=== PATIENT | male | born 1940 | race Caucasian/White ===

== ENCOUNTER → 2017-09-07 10:24 | Outpatient (CLI) | payer MEDICARE, SELFPAY ==
[2017-09-07 11:58] LABS: Add Manual Diff / Slide Review NO; Basophils Percent Auto 0.9 % (0-2); Eosinophils Percent Auto 2.5 % (2-4); Hematocrit 40.1 % (41-53); Hemoglobin 14.2 g/dL (13.5-17.5); Lymphocytes Percent Auto 22.7 % (25-40); Mean Corpuscular HGB Conc 35.4 % (30-36); Mean Corpuscular Hemoglobin 30.2 PG (26-34); Mean Corpuscular Volume 85.4 fL (80-100); Monocytes Percent Auto 10.7 % (3-14); Neutrophils Absolute Auto 4000 /uL (3000-5900); Neutrophils Percent Auto 63.2 % (50-75); Platelet Count 309 X10^3/uL (150-400); Red Blood Cell Count 4.69 X10^6/uL (4.5-5.9); Red Cell Distribution Width 15.1 % (11.6-14.8); White Blood Cell Count 6.3 X10^3/uL (4.5-11.0)
[2017-09-07 12:07] LABS: Alanine Aminotransferase 28 IU/L (21-72); Albumin 4.3 g/dL (3.5-5.0); Albumin Globulin Ratio 1.5 (1.0-2.8); Alkaline Phosphatase 46 U/L (38-126); Aspartate Aminotransferase 28 IU/L (17-59); Bilirubin Total 0.9 mg/dL (0.2-1.3); Blood Urea Nitrogen 15 mg/dL (9-20); Carbon Dioxide 30 mmol/L (22-32); Chloride 93 mmol/L (98-107); Estimated Glomerular Filt Rate > 60.0 mL/min (>60); Globulin 2.8 g/dL (1.7-4.1); Glucose 95 mg/dL (80-110); HEMOLYSIS < 15 (0-50); Potassium 4.2 mmol/L (3.4-5.1); Sodium 132 mmol/L (137-145); Total Protein 7.1 g/dL (6.3-8.2)
== END ==
PROVIDERS: Family Provider Internal Medicine; PCP Internal Medicine; Visit Provider Internal Medicine
DX: I10 Essential (primary) hypertension (principal)
CPT/HCPCS: 36415; 80053; 85025

== ENCOUNTER 2017-10-06 12:16 | Emergency (ER) | payer MEDICARE, SELFPAY ==
[2017-10-06] VITALS (8 sets, daily range): BP systolic 134–178; BP diastolic 83–96; PULSE 61–74; RESP 14–23; TEMP 36.9; O2SAT 99–100
--- NOTE | 2017-10-06 12:57 | ED.DIZZY ---
HPI - Dizziness <Suzi Galeano PA-C - Last Filed: 10/06/17 21:13> General Chief Complaint: Dizziness Stated Complaint: DIZZINESS Time Seen by Provider: 10/06/17 12:34 Source: patient and family Mode of arrival: ambulatory Limitations: no limitations History of Present Illness HPI Narrative: This 76-year-old male was [place], initially in the shade, then in the sun, when he suddenly felt ?dizzy? like he might pass out. He states that he went into the local pub and sat down and had some cold water. He never passed out, and states that he felt better after that. He noticed that his right hand and forearm felt puffy and like they were asleep for a number of minutes at least, noted he had been holding the water in that hand when he 1st noticed it. This did not extend up into the upper arm. He denies any chest pain, dyspnea, or palpitations associated with the dizziness. He has not had any nausea or vomiting. He has not noted any new swelling in the extremities or new pain. He denies any headache or vision change, but did start treatment for a sinus infection last Wednesday with Augmentin and also a Medrol Dosepak for his cough. He states these have improved. He ate a light breakfast and a glass of water this morning. He denies any other symptoms on systems review, states he is feeling somewhat better now. His notes that he did syncopized once due to low sodium. He notes that his sodium is always low but was especially so at that point. He has not had any other recent medication changes. Related Data Home Medications Medication Instructions Recorded Confirmed CA PANTOTHENATE/FOLIC ACID/VIT 1 tab PO QDAY #0 tab 12/09/12 10/01/17 (MULTIVITAMIN) VITAMIN D (Vitamin D3) 1,000 unit PO QDAY #0 tab 12/09/12 10/01/17 ascorbic acid (vitamin C) 500 mg PO QDAY #0 tab 12/09/12 10/01/17 beta carotene 15 mg tablet mg PO tab 09/21/17 10/01/17 cyclobenzaprine 10 mg tablet 10 mg PO ONCE PRN tab 09/21/17 10/01/17 ferrous sulfate 325 mg (65 mg 325 mg PO DAILY tab 09/21/17 10/01/17 iron) tablet alxvuxuazgwqy-seekbzrgbybbx-llzocremamxww 1 cap PO Q4H PRN 09/21/17 10/01/17 65 mg-100 mg-325 mg capsule Previous Rx's Medication Instructions Recorded metoprolol succinate [Toprol XL] 25 mg PO QDAY #90 tab 09/22/16 desmopressin 10 mcg INTRANASAL QDAYP PRN #1 ea 03/23/17 hydrocodone-acetaminophen 1 - 2 tab PO Q4H PRN #90 03/23/17 trazodone 50 mg PO SEE INSTRUCTIONS #180 tab 04/22/17 amoxicillin 500 mg-potassium 1 tab PO BID #14 tab 10/01/17 clavulanate 125 mg tablet methylprednisolone 4 mg tablets in See Label Instructions PO PER PKG 10/01/17 a dose pack DIR #21 each Allergies Allergy/AdvReac Type Severity Reaction Status Date / Time aspirin [ASPIRIN] Allergy Mild HEMOPHILIA Verified 10/06/17 13:25 codeine [CODEINE] Allergy Mild SWELLING Verified 10/06/17 13:25 IN ANKLES ibuprofen [IBUPROFEN] Allergy Mild HEMOPHILIA Verified 10/06/17 13:25 Review of Systems <Suzi Galeano PA-C - Last Filed: 10/06/17 21:13> Review of Systems All systems reviewed & are unremarkable except as noted in HPI and below Exam <Suzi Galeano PA-C - Last Filed: 10/06/17 21:13> Initial Vital Signs Initial Vital Signs: Vital Signs Temperature 98.4 F 10/06/17 12:20 Pulse Rate 72 10/06/17 12:20 Respiratory Rate 18 10/06/17 12:20 Blood Pressure 134/96 H 10/06/17 12:20 Pulse Oximetry 100 10/06/17 12:20 GENERAL APPEARANCE: Patient sitting comfortably, in no distress. HEENT: PERRL, EOMI, TMs occluded by cerumen bilaterally, normal oropharynx, no sinus TTP NECK: Supple, no masses LUNGS: Clear to auscultation bilaterally. HEART: Rate and rhythm regular without murmur, normal S1 and S2, no S3 or S4. ABDOMEN: Soft, NT, ND, + BS x 4 quadrants NEUROLOGIC: Alert and oriented, normal speech, and coordination. Cranial nerves III-XII grossly intact. Mild symptoms are elicited with Hallpike maneuver MUSCULOSKELETAL: Full Csp AROM <Saleem Cagle MD - Last Filed: 10/07/17 18:15> Initial Vital Signs Initial Vital Signs: Vital Signs Temperature 98.4 F 10/06/17 12:20 Pulse Rate 72 10/06/17 12:20 Respiratory Rate 18 10/06/17 12:20 Blood Pressure 134/96 H 10/06/17 12:20 Pulse Oximetry 100 10/06/17 12:20 Course <Suzi Galeano PA-C - Last Filed: 10/06/17 21:13> Hospital Course: Following fluids patient reported feeling much improved. He was ambulating comfortably and reported his dizziness resolved. He had developed some mild headache in the frontal area. He reported that this was not unusual. He actually has chronic headache disorder and this was mild on the spectrum. We did do a CT scan which did not show any acute findings, and he reported headache had already improved by the time of discharge without treatment. Advised return if any worsening or new symptoms and he and his are agreeable, and we will schedule a follow-up with PCP. Findings reviewed with Dr. Cagle who is in agreement with plan Orders Ordered: Discontinued Medications Sodium Chloride (Normal Saline 0.9%) 1,000 mls @ 1,000 mls/hr IV BOLUS ONE Stop: 10/06/17 13:56 Last Infusion: 10/06/17 15:34 Dose: 0 mls/hr Admin: 10/06/17 13:20 Dose: 1,000 mls/hr Vital Signs - 8 hr 10/06/17 13:11 10/06/17 14:08 10/06/17 14:34 Pulse Rate 74 66 68 Respiratory Rate 22 23 20 Blood Pressure [Left Arm] 167/89 H 167/88 H 162/83 H Pulse Oximetry 100 99 100 10/06/17 14:40 10/06/17 15:14 10/06/17 15:54 Pulse Rate 67 71 68 Respiratory Rate 19 17 14 Blood Pressure [Left Arm] 162/83 H 172/90 H 178/84 H Pulse Oximetry 100 100 100 10/06/17 16:00 Pulse Rate 61 Respiratory Rate 18 Blood Pressure [Left Arm] 167/88 H Pulse Oximetry 100 <Saleem Cagle MD - Last Filed: 10/07/17 18:15> Orders Ordered: Discontinued Medications Sodium Chloride (Normal Saline 0.9%) 1,000 mls @ 1,000 mls/hr IV BOLUS ONE Stop: 10/06/17 13:56 Last Infusion: 10/06/17 15:34 Dose: 0 mls/hr Admin: 10/06/17 13:20 Dose: 1,000 mls/hr Vital Signs - 8 hr 10/06/17 13:11 10/06/17 14:08 10/06/17 14:34 Pulse Rate 74 66 68 Respiratory Rate 22 23 20 Blood Pressure [Left Arm] 167/89 H 167/88 H 162/83 H Pulse Oximetry 100 99 100 10/06/17 14:40 10/06/17 15:14 10/06/17 15:54 Pulse Rate 67 71 68 Respiratory Rate 19 17 14 Blood Pressure [Left Arm] 162/83 H 172/90 H 178/84 H Pulse Oximetry 100 100 100 10/06/17 16:00 Pulse Rate 61 Respiratory Rate 18 Blood Pressure [Left Arm] 167/88 H Pulse Oximetry 100 MDM - Dizziness <Suzi Galeano PA-C - Last Filed: 10/06/17 21:13> Lab Data Attestation: I reviewed the patient's lab results. Result diagrams: 10/06/17 12:35 10/06/17 12:35 Lab Results 10/06/17 10/06/17 10/06/17 Range/Units 12:35 12:35 12:35 WBC 12.1 H (4.5-11.0) X10^3/uL RBC 5.12 (4.5-5.9) X10^6/uL Hgb 15.2 (13.5-17.5) g/dL Hct 44.0 (41-53) % MCV 85.9 (80-100) fL MCH 29.7 (26-34) PG MCHC 34.6 (30-36) % RDW 15.7 H (11.6-14.8) % Plt Count 472 H (150-400) X10^3/uL Neut % (Auto) 81.0 H (50-75) % Lymph % (Auto) 9.1 L (25-40) % Rhea % (Auto) 8.9 (3-14) % Eos % (Auto) 0.3 L (2-4) % Baso % (Auto) 0.7 (0-2) % Neut # (Auto) 9800 H (7877-2415) /uL PT 12.3 (10.1-12.7) SECONDS INR 1.1 (0.9-1.3) APTT 46 H (26.4-36.2) SECONDS Sodium 129 L (137-145) mmol/L Potassium 4.5 (3.4-5.1) mmol/L Chloride 90 L (98-107) mmol/L Carbon Dioxide 28 (22-32) mmol/L BUN 20 (9-20) mg/dL Creatinine 1.00 (0.66-1.25) mg/dL Estimated GFR > 60.0 (>60) mL/min BUN/Creatinine Ratio 20.0 (6-22) Glucose 103 (80-110) mg/dL Calcium 9.3 (8.4-10.2) mg/dL Total Bilirubin 1.1 (0.2-1.3) mg/dL AST 32 (17-59) IU/L ALT 50 (21-72) IU/L Alkaline Phosphatase 42 (38-126) U/L Total Creatine Kinase 53 L (55-170) U/L Troponin I < 0.012 (0.01-0.034) ng/mL Total Protein 7.8 (6.3-8.2) g/dL Albumin 4.6 (3.5-5.0) g/dL Globulin 3.2 (1.7-4.1) g/dL Albumin/Globulin Ratio 1.4 (1.0-2.8) Urine Color Urine Appearance Urine pH (4.5-8.0) Ur Specific [place] (1.000-1.035) Urine Protein (Negative) Urine Glucose (UA) (Normal) g/dL Urine Ketones (NEGATIVE) Urine Occult Blood (Negative) Urine Nitrate (Negative) Urine Bilirubin (NEGATIVE) Urine Urobilinogen (0.2) E.U./dL Ur Leukocyte Esterase (NEGATIVE) 10/06/17 Range/Units 14:00 WBC (4.5-11.0) X10^3/uL RBC (4.5-5.9) X10^6/uL Hgb (13.5-17.5) g/dL Hct (41-53) % MCV (80-100) fL MCH (26-34) PG MCHC (30-36) % RDW (11.6-14.8) % Plt Count (150-400) X10^3/uL Neut % (Auto) (50-75) % Lymph % (Auto) (25-40) % Rhea % (Auto) (3-14) % Eos % (Auto) (2-4) % Baso % (Auto) (0-2) % Neut # (Auto) (7439-1549) /uL PT (10.1-12.7) SECONDS INR (0.9-1.3) APTT (26.4-36.2) SECONDS Sodium (137-145) mmol/L Potassium (3.4-5.1) mmol/L Chloride (98-107) mmol/L Carbon Dioxide (22-32) mmol/L BUN (9-20) mg/dL Creatinine (0.66-1.25) mg/dL Estimated GFR (>60) mL/min BUN/Creatinine Ratio (6-22) Glucose (80-110) mg/dL Calcium (8.4-10.2) mg/dL Total Bilirubin (0.2-1.3) mg/dL AST (17-59) IU/L ALT (21-72) IU/L Alkaline Phosphatase (38-126) U/L Total Creatine Kinase (55-170) U/L Troponin I (0.01-0.034) ng/mL Total Protein (6.3-8.2) g/dL Albumin (3.5-5.0) g/dL Globulin (1.7-4.1) g/dL Albumin/Globulin Ratio (1.0-2.8) Urine Color Yellow Urine Appearance Clear Urine pH 8.0 (4.5-8.0) Ur Specific [place] 1.015 (1.000-1.035) Urine Protein Trace H (Negative) Urine Glucose (UA) Negative (Normal) g/dL Urine Ketones Trace H (NEGATIVE) Urine Occult Blood Negative (Negative) Urine Nitrate Negative (Negative) Urine Bilirubin Negative (NEGATIVE) Urine Urobilinogen 0.2 (0.2) E.U./dL Ur Leukocyte Esterase Negative (NEGATIVE) Imaging Data Chest x-ray: Radiologist's impression: [address] [address] XRay Report Signed Patient: Doug Soni MR#: [id number] : 1940 Acct:[id number] Age/Sex: 76 / M Date of Service: 10/06/17 Loc: ED Accession Number: [id number] Procedure: XR chest 1V Ordering Provider: Suzi Galeano P.A-C PROCEDURE: XR CHEST 1V INDICATIONS: near syncope TECHNIQUE: One view of the chest was acquired. COMPARISON: [facility], CR, CHEST 2 VIEW, 06/11/2012, 11:25. FINDINGS: Surgical changes and devices: None. Lungs and pleura: Hyperinflation signs consistent COPD. No pleural effusions or pneumothorax. Lungs are clear. Mediastinum: Mediastinal contours appear normal. Heart size is normal. Bones and chest wall: No suspicious bony lesions. Overlying soft tissues appear unremarkable. IMPRESSION: COPD. No acute cardiopulmonary disease. Dictated by: Yoni Nova M.D. on 10/06/2017 at 13:54 Approved by: Yoni Nova M.D. on 10/06/2017 at 13:57 CT scan - head: Radiologist's impression: [place] [address] CT Scan Report Signed Patient: Doug Soni MR#: [id number] : 1940 Acct:[id number] Age/Sex: 76 / M Date of Service: 10/06/17 Loc: ED Accession Number: [id number] Procedure: CT head/brain wo con Ordering Provider: Suzi Galeano P.A-C PROCEDURE: CT HEAD/BRAIN WO CON INDICATIONS: dizzy, [place]ON TECHNIQUE: Noncontrast 4.5 mm thick angled axial sections acquired from the foramen magnum to the vertex, with coronal and sagittal reformats. For radiation dose reduction, the following was used: automated exposure control, adjustment of mA and/or kV according to patient size. COMPARISON: [facility], CT, HEAD WITHOUT CONTRAST, 01/28/2010, 13:10. FINDINGS: Image quality: Excellent. CSF spaces: Basal cisterns are patent. No extra-axial fluid collections. The ventricles are symmetric in size and shape. Brain: No intracranial bleeds or masses. There is cerebral volume loss for age, with resultant ventricular and sulcal prominence. There are periventricular and deep white matter chronic small vessel ischemic changes. There is intracranial internal carotid artery atherosclerosis. Skull and face: Calvarium and visualized facial bones appear intact, without suspicious lesions. Sinuses: Visualized sinuses and mastoids are clear. IMPRESSION: 1. No acute intracranial abnormalities. 2. Cerebral volume loss and chronic microvascular ischemic changes. Dictated by: Yoni Nova M.D. on 10/06/2017 at 15:38 Approved by: Yoni Nova M.D. on 10/06/2017 at 15:40 ECG Data Attestation: I personally reviewed and interpreted this ECG as follows: (Normal sinus rhythm with rate 67) Prior ECG tracings: not available for review <Saleem Cagle MD - Last Filed: 10/07/17 18:15> Lab Data Lab Results 10/06/17 10/06/17 10/06/17 Range/Units 12:35 12:35 12:35 WBC 12.1 H (4.5-11.0) X10^3/uL RBC 5.12 (4.5-5.9) X10^6/uL Hgb 15.2 (13.5-17.5) g/dL Hct 44.0 (41-53) % MCV 85.9 (80-100) fL MCH 29.7 (26-34) PG MCHC 34.6 (30-36) % RDW 15.7 H (11.6-14.8) % Plt Count 472 H (150-400) X10^3/uL Neut % (Auto) 81.0 H (50-75) % Lymph % (Auto) 9.1 L (25-40) % Rhea % (Auto) 8.9 (3-14) % Eos % (Auto) 0.3 L (2-4) % Baso % (Auto) 0.7 (0-2) % Neut # (Auto) 9800 H (7167-0441) /uL PT 12.3 (10.1-12.7) SECONDS INR 1.1 (0.9-1.3) APTT 46 H (26.4-36.2) SECONDS Sodium 129 L (137-145) mmol/L Potassium 4.5 (3.4-5.1) mmol/L Chloride 90 L (98-107) mmol/L Carbon Dioxide 28 (22-32) mmol/L BUN 20 (9-20) mg/dL Creatinine 1.00 (0.66-1.25) mg/dL Estimated GFR > 60.0 (>60) mL/min BUN/Creatinine Ratio 20.0 (6-22) Glucose 103 (80-110) mg/dL Calcium 9.3 (8.4-10.2) mg/dL Total Bilirubin 1.1 (0.2-1.3) mg/dL AST 32 (17-59) IU/L ALT 50 (21-72) IU/L Alkaline Phosphatase 42 (38-126) U/L Total Creatine Kinase 53 L (55-170) U/L Troponin I < 0.012 (0.01-0.034) ng/mL Total Protein 7.8 (6.3-8.2) g/dL Albumin 4.6 (3.5-5.0) g/dL Globulin 3.2 (1.7-4.1) g/dL Albumin/Globulin Ratio 1.4 (1.0-2.8) Urine Color Urine Appearance Urine pH (4.5-8.0) Ur Specific [place] (1.000-1.035) Urine Protein (Negative) Urine Glucose (UA) (Normal) g/dL Urine Ketones (NEGATIVE) Urine Occult Blood (Negative) Urine Nitrate (Negative) Urine Bilirubin (NEGATIVE) Urine Urobilinogen (0.2) E.U./dL Ur Leukocyte Esterase (NEGATIVE) 10/06/17 Range/Units 14:00 WBC (4.5-11.0) X10^3/uL RBC (4.5-5.9) X10^6/uL Hgb (13.5-17.5) g/dL Hct (41-53) % MCV (80-100) fL MCH (26-34) PG MCHC (30-36) % RDW (11.6-14.8) % Plt Count (150-400) X10^3/uL Neut % (Auto) (50-75) % Lymph % (Auto) (25-40) % Rhea % (Auto) (3-14) % Eos % (Auto) (2-4) % Baso % (Auto) (0-2) % Neut # (Auto) (8635-1817) /uL PT (10.1-12.7) SECONDS INR (0.9-1.3) APTT (26.4-36.2) SECONDS Sodium (137-145) mmol/L Potassium (3.4-5.1) mmol/L Chloride (98-107) mmol/L Carbon Dioxide (22-32) mmol/L BUN (9-20) mg/dL Creatinine (0.66-1.25) mg/dL Estimated GFR (>60) mL/min BUN/Creatinine Ratio (6-22) Glucose (80-110) mg/dL Calcium (8.4-10.2) mg/dL Total Bilirubin (0.2-1.3) mg/dL AST (17-59) IU/L ALT (21-72) IU/L Alkaline Phosphatase (38-126) U/L Total Creatine Kinase (55-170) U/L Troponin I (0.01-0.034) ng/mL Total Protein (6.3-8.2) g/dL Albumin (3.5-5.0) g/dL Globulin (1.7-4.1) g/dL Albumin/Globulin Ratio (1.0-2.8) Urine Color Yellow Urine Appearance Clear Urine pH 8.0 (4.5-8.0) Ur Specific [place] 1.015 (1.000-1.035) Urine Protein Trace H (Negative) Urine Glucose (UA) Negative (Normal) g/dL Urine Ketones Trace H (NEGATIVE) Urine Occult Blood Negative (Negative) Urine Nitrate Negative (Negative) Urine Bilirubin Negative (NEGATIVE) Urine Urobilinogen 0.2 (0.2) E.U./dL Ur Leukocyte Esterase Negative (NEGATIVE) Discharge Plan Departure Patient Disposition: Home, Self-Care Clinical Impression: Pre-syncope Discharge Date/Time: 10/06/17 16:14 Interventions: ED Discharge Assessment Last Done: 10/06/17 16:14 Instructions: DI for Syncope in Adults (Fainting) Activity Restrictions/Additional Instructions: Please return if you have any acutely worsening symptoms again or new symptoms such as chest discomfort or palpitations.. There was no specific cause found for your feeling faint today. Your sodium was a little bit lower than usual even for you, and you may have been a little bit dehydrated. Since you are feeling better, it is okay to monitor at home. Please have some salty food today. Take your usual medications. Please follow-up with your PCP next week for recheck Prescriptions: No Action ascorbic acid (vitamin C) 500 MG tablet 500 mg PO QDAY Qty: 0 RF: 0 CA PANTOTHENATE/FOLIC ACID/VIT (MULTIVITAMIN) 1 tab PO QDAY Qty: 0 RF: 0 VITAMIN D (Vitamin D3) 1,000 unit PO QDAY Qty: 0 RF: 0 metoprolol succinate [Toprol XL] 25 MG tablet extended release 24 hr 25 mg PO QDAY Qty: 90 RF: 3 hydrocodone-acetaminophen 5 MG/325 MG tablet 1 - 2 tab PO Q4H PRNQty: 90 RF: 0 desmopressin 10 MCG/0.1 ML aerosol,spray 10 mcg Intranasal QDAYP PRNQty: 1 RF: 11 trazodone 50 MG tablet 50 mg PO SEE INSTRUCTIONS Qty: 180 RF: 3 cyclobenzaprine 10 mg tablet 10 mg PO ONCE PRNRF: 0 beta carotene 15 mg tablet PO RF: 0 ferrous sulfate [Hemanth-Time] 325 mg (65 mg iron) tablet 325 mg PO DAILY RF: 0 mqmmssx-hthmnzyez-xdzxyclsswcq 65-100-325 mg capsule 1 cap PO Q4H PRNRF: 0 methylprednisolone [Medrol (Juanito)] 4 mg tablets,dose pack See Label Instructions PO PER PKG DIR Qty: 21 RF: 0 amoxicillin-pot clavulanate 500-125 mg tablet 1 tab PO BID Qty: 14 RF: 0 Referrals: Lavon Cardozo MD [Primary Care Provider] - <Saleem Cagle MD - Last Filed: 10/07/17 18:15> Cosign ED Attending Piedadature Attestation: I was fairly well in the emergency department to answer questions and assist if needed. I agree with the document content and management plan.
[2017-10-06 13:04] LABS: Add Manual Diff / Slide Review NO; Basophils Percent Auto 0.7 % (0-2); Eosinophils Percent Auto 0.3 % (2-4); Hemoglobin 15.2 g/dL (13.5-17.5); Lymphocytes Percent Auto 9.1 % (25-40); Mean Corpuscular HGB Conc 34.6 % (30-36); Mean Corpuscular Hemoglobin 29.7 PG (26-34); Mean Corpuscular Volume 85.9 fL (80-100); Monocytes Percent Auto 8.9 % (3-14); Neutrophils Absolute Auto 9800 /uL (3000-5900); Platelet Count 472 X10^3/uL (150-400); Red Blood Cell Count 5.12 X10^6/uL (4.5-5.9); Red Cell Distribution Width 15.7 % (11.6-14.8); White Blood Cell Count 12.1 X10^3/uL (4.5-11.0)
[2017-10-06 13:10] LABS: Alanine Aminotransferase 50 IU/L (21-72); Albumin 4.6 g/dL (3.5-5.0); Albumin Globulin Ratio 1.4 (1.0-2.8); Alkaline Phosphatase 42 U/L (38-126); Aspartate Aminotransferase 32 IU/L (17-59); Bilirubin Total 1.1 mg/dL (0.2-1.3); Blood Urea Nitrogen 20 mg/dL (9-20); Calcium 9.3 mg/dL (8.4-10.2); Carbon Dioxide 28 mmol/L (22-32); Chloride 90 mmol/L (98-107); Creatine Kinase 53 U/L (55-170); Estimated Glomerular Filt Rate > 60.0 mL/min (>60); Globulin 3.2 g/dL (1.7-4.1); Glucose 103 mg/dL (80-110); HEMOLYSIS 15 (0-50); Potassium 4.5 mmol/L (3.4-5.1); Sodium 129 mmol/L (137-145); Total Protein 7.8 g/dL (6.3-8.2)
[2017-10-06] MEDS: SODIUM CHLORIDE 0.9% 1,000 ML 1000 ML IV (13:20)
[2017-10-06 13:22] LABS: Troponin I < 0.012 ng/mL (0.01-0.034)
--- NOTE | 2017-10-06 13:25 | DI.RAD.S_ITS ---
PROCEDURE: XR CHEST 1V INDICATIONS: near syncope TECHNIQUE: One view of the chest was acquired. COMPARISON: [facility], , CHEST 2 VIEW, 06/11/2012, 11:25. FINDINGS: Surgical changes and devices: None. Lungs and pleura: Hyperinflation signs consistent COPD. No pleural effusions or pneumothorax. Lungs are clear. Mediastinum: Mediastinal contours appear normal. Heart size is normal. Bones and chest wall: No suspicious bony lesions. Overlying soft tissues appear unremarkable. IMPRESSION: COPD. No acute cardiopulmonary disease. Dictated by: Yoni Nova M.D. on 10/06/2017 at 13:54 Approved by: Yoni Nova M.D. on 10/06/2017 at 13:57
--- NOTE | 2017-10-06 13:30 | ED_ITS ---
HPI - Dizziness <Suzi Galeano PA-C - Last Filed: 10/06/17 21:13> General Chief Complaint: Dizziness Stated Complaint: DIZZINESS Time Seen by Provider: 10/06/17 12:34 Source: patient and family Mode of arrival: ambulatory Limitations: no limitations History of Present Illness HPI Narrative: This 76-year-old male was [place], initially in the shade, then in the sun, when he suddenly felt ?dizzy? like he might pass out. He states that he went into the local pub and sat down and had some cold water. He never passed out, and states that he felt better after that. He noticed that his right hand and forearm felt puffy and like they were asleep for a number of minutes at least, noted he had been holding the water in that hand when he 1st noticed it. This did not extend up into the upper arm. He denies any chest pain, dyspnea, or palpitations associated with the dizziness. He has not had any nausea or vomiting. He has not noted any new swelling in the extremities or new pain. He denies any headache or vision change, but did start treatment for a sinus infection last Wednesday with Augmentin and also a Medrol Dosepak for his cough. He states these have improved. He ate a light breakfast and a glass of water this morning. He denies any other symptoms on systems review, states he is feeling somewhat better now. His notes that he did syncopized once due to low sodium. He notes that his sodium is always low but was especially so at that point. He has not had any other recent medication changes. Related Data Home Medications Medication Instructions Recorded Confirmed CA PANTOTHENATE/FOLIC ACID/VIT 1 tab PO QDAY #0 tab 12/09/12 10/01/17 (MULTIVITAMIN) VITAMIN D (Vitamin D3) 1,000 unit PO QDAY #0 tab 12/09/12 10/01/17 ascorbic acid (vitamin C) 500 mg PO QDAY #0 tab 12/09/12 10/01/17 beta carotene 15 mg tablet mg PO tab 09/21/17 10/01/17 cyclobenzaprine 10 mg tablet 10 mg PO ONCE PRN tab 09/21/17 10/01/17 ferrous sulfate 325 mg (65 mg 325 mg PO DAILY tab 09/21/17 10/01/17 iron) tablet vwvdijpyygrpk-qfszlnfufalvn-ezhjkrmiolxrv 1 cap PO Q4H PRN 09/21/17 10/01/17 65 mg-100 mg-325 mg capsule Previous Rx's Medication Instructions Recorded metoprolol succinate [Toprol XL] 25 mg PO QDAY #90 tab 09/22/16 desmopressin 10 mcg INTRANASAL QDAYP PRN #1 ea 03/23/17 hydrocodone-acetaminophen 1 - 2 tab PO Q4H PRN #90 03/23/17 trazodone 50 mg PO SEE INSTRUCTIONS #180 tab 04/22/17 amoxicillin 500 mg-potassium 1 tab PO BID #14 tab 10/01/17 clavulanate 125 mg tablet methylprednisolone 4 mg tablets in See Label Instructions PO PER PKG 10/01/17 a dose pack DIR #21 each Allergies Allergy/AdvReac Type Severity Reaction Status Date / Time aspirin [ASPIRIN] Allergy Mild HEMOPHILIA Verified 10/06/17 13:25 codeine [CODEINE] Allergy Mild SWELLING Verified 10/06/17 13:25 IN ANKLES ibuprofen [IBUPROFEN] Allergy Mild HEMOPHILIA Verified 10/06/17 13:25 Review of Systems <Suzi Galeano PA-C - Last Filed: 10/06/17 21:13> Review of Systems All systems reviewed & are unremarkable except as noted in HPI and below Exam <Suzi Galeano PA-C - Last Filed: 10/06/17 21:13> Initial Vital Signs Initial Vital Signs: Vital Signs Temperature 98.4 F 10/06/17 12:20 Pulse Rate 72 10/06/17 12:20 Respiratory Rate 18 10/06/17 12:20 Blood Pressure 134/96 H 10/06/17 12:20 Pulse Oximetry 100 10/06/17 12:20 GENERAL APPEARANCE: Patient sitting comfortably, in no distress. HEENT: PERRL, EOMI, TMs occluded by cerumen bilaterally, normal oropharynx, no sinus TTP NECK: Supple, no masses LUNGS: Clear to auscultation bilaterally. HEART: Rate and rhythm regular without murmur, normal S1 and S2, no S3 or S4. ABDOMEN: Soft, NT, ND, + BS x 4 quadrants NEUROLOGIC: Alert and oriented, normal speech, and coordination. Cranial nerves III-XII grossly intact. Mild symptoms are elicited with Hallpike maneuver MUSCULOSKELETAL: Full Csp AROM <Saleem Cagle MD - Last Filed: 10/07/17 18:15> Initial Vital Signs Initial Vital Signs: Vital Signs Temperature 98.4 F 10/06/17 12:20 Pulse Rate 72 10/06/17 12:20 Respiratory Rate 18 10/06/17 12:20 Blood Pressure 134/96 H 10/06/17 12:20 Pulse Oximetry 100 10/06/17 12:20 Course <Suzi Galeano PA-C - Last Filed: 10/06/17 21:13> Hospital Course: Following fluids patient reported feeling much improved. He was ambulating comfortably and reported his dizziness resolved. He had developed some mild headache in the frontal area. He reported that this was not unusual. He actually has chronic headache disorder and this was mild on the spectrum. We did do a CT scan which did not show any acute findings, and he reported headache had already improved by the time of discharge without treatment. Advised return if any worsening or new symptoms and he and his are agreeable, and we will schedule a follow-up with PCP. Findings reviewed with Dr. Cagle who is in agreement with plan Orders Ordered: Discontinued Medications Sodium Chloride (Normal Saline 0.9%) 1,000 mls @ 1,000 mls/hr IV BOLUS ONE Stop: 10/06/17 13:56 Last Infusion: 10/06/17 15:34 Dose: 0 mls/hr Admin: 10/06/17 13:20 Dose: 1,000 mls/hr Vital Signs - 8 hr 10/06/17 13:11 10/06/17 14:08 10/06/17 14:34 Pulse Rate 74 66 68 Respiratory Rate 22 23 20 Blood Pressure [Left Arm] 167/89 H 167/88 H 162/83 H Pulse Oximetry 100 99 100 10/06/17 14:40 10/06/17 15:14 10/06/17 15:54 Pulse Rate 67 71 68 Respiratory Rate 19 17 14 Blood Pressure [Left Arm] 162/83 H 172/90 H 178/84 H Pulse Oximetry 100 100 100 10/06/17 16:00 Pulse Rate 61 Respiratory Rate 18 Blood Pressure [Left Arm] 167/88 H Pulse Oximetry 100 <Saleem Cagle MD - Last Filed: 10/07/17 18:15> Orders Ordered: Discontinued Medications Sodium Chloride (Normal Saline 0.9%) 1,000 mls @ 1,000 mls/hr IV BOLUS ONE Stop: 10/06/17 13:56 Last Infusion: 10/06/17 15:34 Dose: 0 mls/hr Admin: 10/06/17 13:20 Dose: 1,000 mls/hr Vital Signs - 8 hr 10/06/17 13:11 10/06/17 14:08 10/06/17 14:34 Pulse Rate 74 66 68 Respiratory Rate 22 23 20 Blood Pressure [Left Arm] 167/89 H 167/88 H 162/83 H Pulse Oximetry 100 99 100 10/06/17 14:40 10/06/17 15:14 10/06/17 15:54 Pulse Rate 67 71 68 Respiratory Rate 19 17 14 Blood Pressure [Left Arm] 162/83 H 172/90 H 178/84 H Pulse Oximetry 100 100 100 10/06/17 16:00 Pulse Rate 61 Respiratory Rate 18 Blood Pressure [Left Arm] 167/88 H Pulse Oximetry 100 MDM - Dizziness <Suzi Galeano PA-C - Last Filed: 10/06/17 21:13> Lab Data Attestation: I reviewed the patient's lab results. Result diagrams: 10/06/17 12:35 10/06/17 12:35 Lab Results 10/06/17 10/06/17 10/06/17 Range/Units 12:35 12:35 12:35 WBC 12.1 H (4.5-11.0) X10^3/uL RBC 5.12 (4.5-5.9) X10^6/uL Hgb 15.2 (13.5-17.5) g/dL Hct 44.0 (41-53) % MCV 85.9 (80-100) fL MCH 29.7 (26-34) PG MCHC 34.6 (30-36) % RDW 15.7 H (11.6-14.8) % Plt Count 472 H (150-400) X10^3/uL Neut % (Auto) 81.0 H (50-75) % Lymph % (Auto) 9.1 L (25-40) % [place] % (Auto) 8.9 (3-14) % Eos % (Auto) 0.3 L (2-4) % Baso % (Auto) 0.7 (0-2) % Neut # (Auto) 9800 H (5268-6232) /uL PT 12.3 (10.1-12.7) SECONDS INR 1.1 (0.9-1.3) APTT 46 H (26.4-36.2) SECONDS Sodium 129 L (137-145) mmol/L Potassium 4.5 (3.4-5.1) mmol/L Chloride 90 L (98-107) mmol/L Carbon Dioxide 28 (22-32) mmol/L BUN 20 (9-20) mg/dL Creatinine 1.00 (0.66-1.25) mg/dL Estimated GFR > 60.0 (>60) mL/min BUN/Creatinine Ratio 20.0 (6-22) Glucose 103 (80-110) mg/dL Calcium 9.3 (8.4-10.2) mg/dL Total Bilirubin 1.1 (0.2-1.3) mg/dL AST 32 (17-59) IU/L ALT 50 (21-72) IU/L Alkaline Phosphatase 42 (38-126) U/L Total Creatine Kinase 53 L (55-170) U/L Troponin I < 0.012 (0.01-0.034) ng/mL Total Protein 7.8 (6.3-8.2) g/dL Albumin 4.6 (3.5-5.0) g/dL Globulin 3.2 (1.7-4.1) g/dL Albumin/Globulin Ratio 1.4 (1.0-2.8) Urine Color Urine Appearance Urine pH (4.5-8.0) Ur Specific [place] (1.000-1.035) Urine Protein (Negative) Urine Glucose (UA) (Normal) g/dL Urine Ketones (NEGATIVE) Urine Occult Blood (Negative) Urine Nitrate (Negative) Urine Bilirubin (NEGATIVE) Urine Urobilinogen (0.2) E.U./dL Ur Leukocyte Esterase (NEGATIVE) 10/06/17 Range/Units 14:00 WBC (4.5-11.0) X10^3/uL RBC (4.5-5.9) X10^6/uL Hgb (13.5-17.5) g/dL Hct (41-53) % MCV (80-100) fL MCH (26-34) PG MCHC (30-36) % RDW (11.6-14.8) % Plt Count (150-400) X10^3/uL Neut % (Auto) (50-75) % Lymph % (Auto) (25-40) % [place] % (Auto) (3-14) % Eos % (Auto) (2-4) % Baso % (Auto) (0-2) % Neut # (Auto) (5202-2458) /uL PT (10.1-12.7) SECONDS INR (0.9-1.3) APTT (26.4-36.2) SECONDS Sodium (137-145) mmol/L Potassium (3.4-5.1) mmol/L Chloride (98-107) mmol/L Carbon Dioxide (22-32) mmol/L BUN (9-20) mg/dL Creatinine (0.66-1.25) mg/dL Estimated GFR (>60) mL/min BUN/Creatinine Ratio (6-22) Glucose (80-110) mg/dL Calcium (8.4-10.2) mg/dL Total Bilirubin (0.2-1.3) mg/dL AST (17-59) IU/L ALT (21-72) IU/L Alkaline Phosphatase (38-126) U/L Total Creatine Kinase (55-170) U/L Troponin I (0.01-0.034) ng/mL Total Protein (6.3-8.2) g/dL Albumin (3.5-5.0) g/dL Globulin (1.7-4.1) g/dL Albumin/Globulin Ratio (1.0-2.8) Urine Color Yellow Urine Appearance Clear Urine pH 8.0 (4.5-8.0) Ur Specific [place] 1.015 (1.000-1.035) Urine Protein Trace H (Negative) Urine Glucose (UA) Negative (Normal) g/dL Urine Ketones Trace H (NEGATIVE) Urine Occult Blood Negative (Negative) Urine Nitrate Negative (Negative) Urine Bilirubin Negative (NEGATIVE) Urine Urobilinogen 0.2 (0.2) E.U./dL Ur Leukocyte Esterase Negative (NEGATIVE) Imaging Data Chest x-ray: Radiologist's impression: [address] [address] XRay Report Signed Patient: Doug Soni MR#: [id number] : 1940 Acct:[id number] Age/Sex: 76 / M Date of Service: 10/06/17 Loc: ED Accession Number: [id number] Procedure: XR chest 1V Ordering Provider: Suzi Galeano P.A-C PROCEDURE: XR CHEST 1V INDICATIONS: near syncope TECHNIQUE: One view of the chest was acquired. COMPARISON: [facility], CR, CHEST 2 VIEW, 06/11/2012, 11:25. FINDINGS: Surgical changes and devices: None. Lungs and pleura: Hyperinflation signs consistent COPD. No pleural effusions or pneumothorax. Lungs are clear. Mediastinum: Mediastinal contours appear normal. Heart size is normal. Bones and chest wall: No suspicious bony lesions. Overlying soft tissues appear unremarkable. IMPRESSION: COPD. No acute cardiopulmonary disease. Dictated by: Yoni Nova M.D. on 10/06/2017 at 13:54 Approved by: Yoni Nova M.D. on 10/06/2017 at 13:57 CT scan - head: Radiologist's impression: [place] [address] CT Scan Report Signed Patient: Doug Soni MR#: [id number] : 1940 Acct:[id number] Age/Sex: 76 / M Date of Service: 10/06/17 Loc: ED Accession Number: [id number] Procedure: CT head/brain wo con Ordering Provider: Suzi Galeano P.A-C PROCEDURE: CT HEAD/BRAIN WO CON INDICATIONS: dizzy, GASTON TECHNIQUE: Noncontrast 4.5 mm thick angled axial sections acquired from the foramen magnum to the vertex, with coronal and sagittal reformats. For radiation dose reduction, the following was used: automated exposure control, adjustment of mA and/or kV according to patient size. COMPARISON: [facility], CT, HEAD WITHOUT CONTRAST, 01/28/2010, 13:10. FINDINGS: Image quality: Excellent. CSF spaces: Basal cisterns are patent. No extra-axial fluid collections. The ventricles are symmetric in size and shape. Brain: No intracranial bleeds or masses. There is cerebral volume loss for age , with resultant ventricular and sulcal prominence. There are periventricular and deep white matter chronic small vessel ischemic changes. There is intracranial internal carotid artery atherosclerosis. Skull and face: Calvarium and visualized facial bones appear intact, without suspicious lesions. Sinuses: Visualized sinuses and mastoids are clear. IMPRESSION: 1. No acute intracranial abnormalities. 2. Cerebral volume loss and chronic microvascular ischemic changes. Dictated by: Yoni Nova M.D. on 10/06/2017 at 15:38 Approved by: Yoni Nova M.D. on 10/06/2017 at 15:40 ECG Data Attestation: I personally reviewed and interpreted this ECG as follows: (Normal sinus rhythm with rate 67) Prior ECG tracings: not available for review <Saleem Cagle MD - Last Filed: 10/07/17 18:15> Lab Data Lab Results 10/06/17 10/06/17 10/06/17 Range/Units 12:35 12:35 12:35 WBC 12.1 H (4.5-11.0) X10^3/uL RBC 5.12 (4.5-5.9) X10^6/uL Hgb 15.2 (13.5-17.5) g/dL Hct 44.0 (41-53) % MCV 85.9 (80-100) fL MCH 29.7 (26-34) PG MCHC 34.6 (30-36) % RDW 15.7 H (11.6-14.8) % Plt Count 472 H (150-400) X10^3/uL Neut % (Auto) 81.0 H (50-75) % Lymph % (Auto) 9.1 L (25-40) % [place] % (Auto) 8.9 (3-14) % Eos % (Auto) 0.3 L (2-4) % Baso % (Auto) 0.7 (0-2) % Neut # (Auto) 9800 H (9414-3043) /uL PT 12.3 (10.1-12.7) SECONDS INR 1.1 (0.9-1.3) APTT 46 H (26.4-36.2) SECONDS Sodium 129 L (137-145) mmol/L Potassium 4.5 (3.4-5.1) mmol/L Chloride 90 L (98-107) mmol/L Carbon Dioxide 28 (22-32) mmol/L BUN 20 (9-20) mg/dL Creatinine 1.00 (0.66-1.25) mg/dL Estimated GFR > 60.0 (>60) mL/min BUN/Creatinine Ratio 20.0 (6-22) Glucose 103 (80-110) mg/dL Calcium 9.3 (8.4-10.2) mg/dL Total Bilirubin 1.1 (0.2-1.3) mg/dL AST 32 (17-59) IU/L ALT 50 (21-72) IU/L Alkaline Phosphatase 42 (38-126) U/L Total Creatine Kinase 53 L (55-170) U/L Troponin I < 0.012 (0.01-0.034) ng/mL Total Protein 7.8 (6.3-8.2) g/dL Albumin 4.6 (3.5-5.0) g/dL Globulin 3.2 (1.7-4.1) g/dL Albumin/Globulin Ratio 1.4 (1.0-2.8) Urine Color Urine Appearance Urine pH (4.5-8.0) Ur Specific [place] (1.000-1.035) Urine Protein (Negative) Urine Glucose (UA) (Normal) g/dL Urine Ketones (NEGATIVE) Urine Occult Blood (Negative) Urine Nitrate (Negative) Urine Bilirubin (NEGATIVE) Urine Urobilinogen (0.2) E.U./dL Ur Leukocyte Esterase (NEGATIVE) 10/06/17 Range/Units 14:00 WBC (4.5-11.0) X10^3/uL RBC (4.5-5.9) X10^6/uL Hgb (13.5-17.5) g/dL Hct (41-53) % MCV (80-100) fL MCH (26-34) PG MCHC (30-36) % RDW (11.6-14.8) % Plt Count (150-400) X10^3/uL Neut % (Auto) (50-75) % Lymph % (Auto) (25-40) % [place] % (Auto) (3-14) % Eos % (Auto) (2-4) % Baso % (Auto) (0-2) % Neut # (Auto) (1279-4987) /uL PT (10.1-12.7) SECONDS INR (0.9-1.3) APTT (26.4-36.2) SECONDS Sodium (137-145) mmol/L Potassium (3.4-5.1) mmol/L Chloride (98-107) mmol/L Carbon Dioxide (22-32) mmol/L BUN (9-20) mg/dL Creatinine (0.66-1.25) mg/dL Estimated GFR (>60) mL/min BUN/Creatinine Ratio (6-22) Glucose (80-110) mg/dL Calcium (8.4-10.2) mg/dL Total Bilirubin (0.2-1.3) mg/dL AST (17-59) IU/L ALT (21-72) IU/L Alkaline Phosphatase (38-126) U/L Total Creatine Kinase (55-170) U/L Troponin I (0.01-0.034) ng/mL Total Protein (6.3-8.2) g/dL Albumin (3.5-5.0) g/dL Globulin (1.7-4.1) g/dL Albumin/Globulin Ratio (1.0-2.8) Urine Color Yellow Urine Appearance Clear Urine pH 8.0 (4.5-8.0) Ur Specific [place] 1.015 (1.000-1.035) Urine Protein Trace H (Negative) Urine Glucose (UA) Negative (Normal) g/dL Urine Ketones Trace H (NEGATIVE) Urine Occult Blood Negative (Negative) Urine Nitrate Negative (Negative) Urine Bilirubin Negative (NEGATIVE) Urine Urobilinogen 0.2 (0.2) E.U./dL Ur Leukocyte Esterase Negative (NEGATIVE) Discharge Plan Departure Patient Disposition: Home, Self-Care Clinical Impression: Pre-syncope Discharge Date/Time: 10/06/17 16:14 Interventions: ED Discharge Assessment Last Done: 10/06/17 16:14 Instructions: DI for Syncope in Adults (Fainting) Activity Restrictions/Additional Instructions: Please return if you have any acutely worsening symptoms again or new symptoms such as chest discomfort or palpitations.. There was no specific cause found for your feeling faint today. Your sodium was a little bit lower than usual even for you, and you may have been a little bit dehydrated. Since you are feeling better, it is okay to monitor at home. Please have some salty food today. Take your usual medications. Please follow-up with your PCP next week for recheck Prescriptions: No Action ascorbic acid (vitamin C) 500 MG tablet 500 mg PO QDAY Qty: 0 RF: 0 CA PANTOTHENATE/FOLIC ACID/VIT (MULTIVITAMIN) 1 tab PO QDAY Qty: 0 RF: 0 VITAMIN D (Vitamin D3) 1,000 unit PO QDAY Qty: 0 RF: 0 metoprolol succinate [Toprol XL] 25 MG tablet extended release 24 hr 25 mg PO QDAY Qty: 90 RF: 3 hydrocodone-acetaminophen 5 MG/325 MG tablet 1 - 2 tab PO Q4H PRNQty: 90 RF: 0 desmopressin 10 MCG/0.1 ML aerosol,spray 10 mcg Intranasal QDAYP PRNQty: 1 RF: 11 trazodone 50 MG tablet 50 mg PO SEE INSTRUCTIONS Qty: 180 RF: 3 cyclobenzaprine 10 mg tablet 10 mg PO ONCE PRNRF: 0 beta carotene 15 mg tablet PO RF: 0 ferrous sulfate [Hemanth-Time] 325 mg (65 mg iron) tablet 325 mg PO DAILY RF: 0 tvvisln-clssxjolh-sloikoflgync 65-100-325 mg capsule 1 cap PO Q4H PRNRF: 0 methylprednisolone [Medrol (Juanito)] 4 mg tablets,dose pack See Label Instructions PO PER PKG DIR Qty: 21 RF: 0 amoxicillin-pot clavulanate 500-125 mg tablet 1 tab PO BID Qty: 14 RF: 0 Referrals: Lavon Cardozo MD [Primary Care Provider] - <Saleem Cagle MD - Last Filed: 10/07/17 18:15> Cosign ED Attending Piedadature Attestation: I was fairly well in the emergency department to answer questions and assist if needed. I agree with the document content and management plan.
[2017-10-06 13:44] LABS: INR 1.1 (0.9-1.3); Prothrombin Time 12.3 SECONDS (10.1-12.7)
[2017-10-06 13:46] LABS: PTT Partial Thromboplastin Tim 46 SECONDS (26.4-36.2)
[2017-10-06 14:26] LABS: Appearance Urine UA CLEAR; Bilirubin Urine UA NEGATIVE (NEGATIVE); Color Urine UA YELLOW; Glucose Urine UA NEGATIVE (Normal); Ketones Urine UA TRACE (NEGATIVE); Leukocyte Esterase Urine UA NEGATIVE (NEGATIVE); Nitrite Urine UA Negative (Negative); Occult Blood Urine UA NEGATIVE (Negative); Protein Urine UA TRACE (Negative); Specific Gravity Urine UA 1.015 (1.000-1.035); Urobilinogen Urine UA 0.2 E.U./dL (0.2)
--- NOTE | 2017-10-06 15:17 | DI.CT.S_ITS ---
PROCEDURE: CT HEAD/BRAIN WO CON INDICATIONS: dizzy, GASTON TECHNIQUE: Noncontrast 4.5 mm thick angled axial sections acquired from the foramen magnum to the vertex, with coronal and sagittal reformats. For radiation dose reduction, the following was used: automated exposure control, adjustment of mA and/or kV according to patient size. COMPARISON: [facility], CT, HEAD WITHOUT CONTRAST, 01/28/2010, 13:10. FINDINGS: Image quality: Excellent. CSF spaces: Basal cisterns are patent. No extra-axial fluid collections. The ventricles are symmetric in size and shape. Brain: No intracranial bleeds or masses. There is cerebral volume loss for age, with resultant ventricular and sulcal prominence. There are periventricular and deep white matter chronic small vessel ischemic changes. There is intracranial internal carotid artery atherosclerosis. Skull and face: Calvarium and visualized facial bones appear intact, without suspicious lesions. Sinuses: Visualized sinuses and mastoids are clear. IMPRESSION: 1. No acute intracranial abnormalities. 2. Cerebral volume loss and chronic microvascular ischemic changes. Dictated by: Yoni Nova M.D. on 10/06/2017 at 15:38 Approved by: Yoni Nova M.D. on 10/06/2017 at 15:40
== END 2017-10-06 16:14 | disposition home or self-care (01) ==
PROVIDERS: Emergency Provider Internal Medicine; Family Provider Internal Medicine; PCP Internal Medicine
DX: R55 Syncope and collapse (principal)
CPT/HCPCS: 36415; 36591; 70450; 71045; 80053; 81003; 82550; 82553; 84484; 85025; 85610; 85730; 93005; 93041; 96360; 96361; 99285

== ENCOUNTER → 2018-02-22 11:02 | Outpatient (CLI) | payer MEDICARE, SELFPAY ==
[2018-02-22 12:04] LABS: Add Manual Diff / Slide Review NO; Eosinophils Percent Auto 1.3 % (2-4); Hematocrit 39.9 % (41-53); Hemoglobin 13.7 g/dL (13.5-17.5); Lymphocytes Percent Auto 20.4 % (25-40); Mean Corpuscular HGB Conc 34.4 % (30-36); Mean Corpuscular Hemoglobin 29.9 PG (26-34); Mean Corpuscular Volume 86.9 fL (80-100); Monocytes Percent Auto 10.1 % (3-14); Neutrophils Absolute Auto 3900 /uL (3000-5900); Neutrophils Percent Auto 67.2 % (50-75); Platelet Count 337 X10^3/uL (150-400); Red Blood Cell Count 4.59 X10^6/uL (4.5-5.9); Red Cell Distribution Width 14.9 % (11.6-14.8); White Blood Cell Count 5.8 X10^3/uL (4.5-11.0)
[2018-02-22 12:20] LABS: Alanine Aminotransferase 34 IU/L (21-72); Albumin 4.4 g/dL (3.5-5.0); Albumin Globulin Ratio 1.6 (1.0-2.8); Alkaline Phosphatase 41 U/L (38-126); Aspartate Aminotransferase 25 IU/L (17-59); BUN Creatinine Ratio 12.7 (6-22); Bilirubin Total 0.7 mg/dL (0.2-1.3); Blood Urea Nitrogen 14 mg/dL (9-20); Calcium 9.1 mg/dL (8.4-10.2); Carbon Dioxide 29 mmol/L (22-32); Chloride 97 mmol/L (98-107); Cholesterol 146 mg/dL (140-199); Estimated Glomerular Filt Rate > 60.0 mL/min (>60); Globulin 2.7 g/dL (1.7-4.1); Glucose 99 mg/dL (80-110); HDL Cholesterol 47 mg/dL (40-60); HEMOLYSIS < 15 (0-50); LDL Cholesterol Calculated 80 mg/dL (<100); Potassium 4.5 mmol/L (3.4-5.1); Sodium 134 mmol/L (137-145); Total Protein 7.1 g/dL (6.3-8.2); Triglycerides 93 mg/dL (35-150)
== END ==
PROVIDERS: PCP Internal Medicine; Visit Provider Internal Medicine
DX: D66 Hereditary factor VIII deficiency (principal); I10 Essential (primary) hypertension
CPT/HCPCS: 36415; 80053; 80061; 85025

== ENCOUNTER → 2018-11-15 15:28 | Outpatient (CLI) | payer MEDICARE, SELFPAY ==
[2018-11-15 15:50] LABS: Add Manual Diff / Slide Review NO; Basophils Absolute Auto 100 /uL (0-100); Basophils Percent Auto 0.8 % (0-2); Eosinophils Absolute Auto 100 /uL (0-450); Hemoglobin 13.9 g/dL (13.5-17.5); Lymphocytes Absolute Auto 1000 /uL (1100-4500); Lymphocytes Percent Auto 13.2 % (25-40); Mean Corpuscular HGB Conc 35.5 % (30-36); Mean Corpuscular Hemoglobin 30.8 PG (26-34); Mean Corpuscular Volume 86.8 fL (80-100); Monocytes Absolute Auto 600 /uL (0-900); Monocytes Percent Auto 8.3 % (3-14); Neutrophils Absolute Auto 5900 /uL (1500-7000); Neutrophils Percent Auto 76.7 % (50-75); Platelet Count 352 X10^3/uL (150-400); Red Cell Distribution Width 14.9 % (11.6-14.8); White Blood Cell Count 7.7 X10^3/uL (4.5-11.0)
[2018-11-15 16:41] LABS: Alanine Aminotransferase 27 IU/L (21-72); Albumin 4.4 g/dL (3.5-5.0); Albumin Globulin Ratio 1.7 (1.0-2.8); Alkaline Phosphatase 38 U/L (38-126); Aspartate Aminotransferase 26 IU/L (17-59); Bilirubin Total 0.8 mg/dL (0.2-1.3); Blood Urea Nitrogen 15 mg/dL (9-20); Calcium 9.1 mg/dL (8.4-10.2); Carbon Dioxide 26 mmol/L (22-32); Chloride 93 mmol/L (98-107); Estimated Glomerular Filt Rate > 60.0 mL/min (>60); Globulin 2.6 g/dL (1.7-4.1); Glucose 101 mg/dL (80-110); HEMOLYSIS < 15 (0-50); Potassium 4.6 mmol/L (3.4-5.1); Sodium 128 mmol/L (137-145)
== END ==
PROVIDERS: PCP Internal Medicine; Visit Provider Internal Medicine
DX: D66 Hereditary factor VIII deficiency (principal); I10 Essential (primary) hypertension
CPT/HCPCS: 36415; 80053; 85025

== ENCOUNTER → 2019-09-08 11:17 | Outpatient (CLI) | payer MEDICARE, SELFPAY ==
[2019-09-08 12:36] LABS: Add Manual Diff / Slide Review NO; Basophils Absolute Auto 0 /uL (0-100); Basophils Percent Auto 0.7 % (0-2); Eosinophils Absolute Auto 100 /uL (0-450); Eosinophils Percent Auto 1.1 % (2-4); Hematocrit 38.9 % (41-53); Hemoglobin 13.8 g/dL (13.5-17.5); Lymphocytes Absolute Auto 700 /uL (1100-4500); Mean Corpuscular HGB Conc 35.5 % (30-36); Mean Corpuscular Hemoglobin 30.9 PG (26-34); Mean Corpuscular Volume 87.2 fL (80-100); Monocytes Absolute Auto 600 /uL (0-900); Neutrophils Absolute Auto 4700 /uL (1500-7000); Neutrophils Percent Auto 76.2 % (50-75); Platelet Count 340 X10^3/uL (150-400); Red Blood Cell Count 4.46 X10^6/uL (4.5-5.9); Red Cell Distribution Width 15.2 % (11.6-14.8); White Blood Cell Count 6.2 X10^3/uL (4.5-11.0)
[2019-09-08 13:02] LABS: Alanine Aminotransferase 21 IU/L (<50); Albumin 4.6 g/dL (3.5-5.0); Albumin Globulin Ratio 1.7 (1.0-2.8); Alkaline Phosphatase 41 U/L (38-126); Aspartate Aminotransferase 29 IU/L (17-59); BUN Creatinine Ratio 14.4 (6-22); Bilirubin Total 0.9 mg/dL (0.2-1.3); Blood Urea Nitrogen 13 mg/dL (9-20); Calcium 9.4 mg/dL (8.4-10.2); Carbon Dioxide 29 mmol/L (22-32); Chloride 92 mmol/L (98-107); Estimated Glomerular Filt Rate > 60.0 mL/min (>60); Globulin 2.7 g/dL (1.7-4.1); Glucose 92 mg/dL (80-110); HEMOLYSIS < 15 (0-50); Potassium 4.9 mmol/L (3.4-5.1); Sodium 128 mmol/L (137-145); Total Protein 7.3 g/dL (6.3-8.2)
== END ==
PROVIDERS: PCP Internal Medicine; Referring Provider Internal Medicine; Visit Provider Internal Medicine
DX: D66 Hereditary factor VIII deficiency (principal); I10 Essential (primary) hypertension
CPT/HCPCS: 36415; 80053; 85025

== ENCOUNTER → 2019-10-31 11:47 | Outpatient (CLI) | payer MEDICARE, SELFPAY | PROVIDERS: PCP Internal Medicine; Visit Provider Nurse Practitioner Family | DX: H10.9 Unspecified conjunctivitis (principal); L03.213 Periorbital cellulitis | CPT/HCPCS: 87070; 87205 ==

== ENCOUNTER → 2020-02-28 11:46 | Outpatient (CLI) | payer MEDICARE, SELFPAY ==
[2020-02-28 12:52] LABS: Add Manual Diff / Slide Review NO; Basophils Absolute Auto 0 /uL (0-100); Basophils Percent Auto 0.8 % (0-2); Eosinophils Absolute Auto 100 /uL (0-450); Eosinophils Percent Auto 1.5 % (2-4); Hematocrit 40.7 % (41-53); Hemoglobin 14.1 g/dL (13.5-17.5); Lymphocytes Absolute Auto 1100 /uL (1100-4500); Mean Corpuscular HGB Conc 34.6 % (30-36); Mean Corpuscular Hemoglobin 30.6 PG (26-34); Mean Corpuscular Volume 88.6 fL (80-100); Monocytes Absolute Auto 700 /uL (0-900); Monocytes Percent Auto 11.8 % (3-14); Neutrophils Absolute Auto 3800 /uL (1500-7000); Neutrophils Percent Auto 66.9 % (50-75); Platelet Count 272 X10^3/uL (150-400); Red Blood Cell Count 4.59 X10^6/uL (4.5-5.9); White Blood Cell Count 5.6 X10^3/uL (4.5-11.0)
[2020-02-28 13:13] LABS: Alanine Aminotransferase 24 IU/L (<50); Albumin 4.6 g/dL (3.5-5.0); Albumin Globulin Ratio 1.6 (1.0-2.8); Alkaline Phosphatase 47 U/L (38-126); Aspartate Aminotransferase 31 IU/L (17-59); BUN Creatinine Ratio 14.4 (6-22); Bilirubin Total 0.8 mg/dL (0.2-1.3); Blood Urea Nitrogen 13 mg/dL (9-20); Calcium 9.1 mg/dL (8.4-10.2); Carbon Dioxide 32 mmol/L (22-32); Chloride 96 mmol/L (98-107); Estimated Glomerular Filt Rate > 60.0 mL/min (>60); Globulin 2.9 g/dL (1.7-4.1); Glucose 108 mg/dL (80-110); HEMOLYSIS < 15 (0-50); Potassium 4.6 mmol/L (3.4-5.1); Sodium 131 mmol/L (137-145); Total Protein 7.5 g/dL (6.3-8.2)
== END ==
PROVIDERS: PCP Internal Medicine; Referring Provider Internal Medicine; Visit Provider Internal Medicine
DX: D66 Hereditary factor VIII deficiency (principal); I10 Essential (primary) hypertension
CPT/HCPCS: 36415; 80053; 85025

== ENCOUNTER → 2020-08-16 13:29 | Outpatient (CLI) | payer MEDICARE, SELFPAY ==
[2020-08-16 14:54] LABS: Hematocrit 38.5 % (41-53); Mean Corpuscular HGB Conc 33.8 % (30-36); Mean Corpuscular Hemoglobin 30.5 PG (26-34); Mean Corpuscular Volume 90.4 fL (80-100); Platelet Count 269 X10^3/uL (150-400); Red Blood Cell Count 4.26 X10^6/uL (4.5-5.9); Red Cell Distribution Width 15.6 % (11.6-14.8); White Blood Cell Count 5.7 X10^3/uL (4.5-11.0)
[2020-08-16 14:57] LABS: Alanine Aminotransferase 28 IU/L (<50); Albumin 4.5 g/dL (3.5-5.0); Albumin Globulin Ratio 1.7 (1.0-2.8); Alkaline Phosphatase 48 U/L (38-126); Aspartate Aminotransferase 34 IU/L (17-59); Bilirubin Total 0.9 mg/dL (0.2-1.3); Blood Urea Nitrogen 16 mg/dL (9-20); Calcium 9.4 mg/dL (8.4-10.2); Carbon Dioxide 28 mmol/L (22-32); Chloride 95 mmol/L (98-107); Estimated Glomerular Filt Rate > 60.0 mL/min (>60); Globulin 2.7 g/dL (1.7-4.1); Glucose 95 mg/dL (80-110); HEMOLYSIS < 15 (0-50); Potassium 4.4 mmol/L (3.4-5.1); Sodium 131 mmol/L (137-145); Total Protein 7.2 g/dL (6.3-8.2)
== END ==
PROVIDERS: PCP Internal Medicine; Referring Provider Internal Medicine; Visit Provider Internal Medicine
DX: I10 Essential (primary) hypertension (principal); D66 Hereditary factor VIII deficiency
CPT/HCPCS: 36415; 80053; 85027

== ENCOUNTER → 2020-08-30 16:12 | Outpatient (CLI) | payer MEDICARE, SELFPAY | PROVIDERS: PCP Internal Medicine; Referring Provider Internal Medicine; Visit Provider Internal Medicine | DX: I10 Essential (primary) hypertension (principal); R53.83 Other fatigue | CPT/HCPCS: 36415; 84439; 84443 ==

== ENCOUNTER → 2021-02-18 10:26 | Outpatient (CLI) | payer MEDICARE, SELFPAY ==
[2021-02-18 11:21] LABS: Add Manual Diff / Slide Review NO; Basophils Absolute Auto 0 /uL (0-100); Basophils Percent Auto 0.7 % (0-2); Eosinophils Absolute Auto 100 /uL (0-450); Lymphocytes Absolute Auto 900 /uL (1100-4500); Lymphocytes Percent Auto 20.7 % (25-40); Mean Corpuscular HGB Conc 34.1 % (30-36); Mean Corpuscular Hemoglobin 29.9 PG (26-34); Mean Corpuscular Volume 87.7 fL (80-100); Monocytes Absolute Auto 500 /uL (0-900); Monocytes Percent Auto 11.9 % (3-14); Neutrophils Absolute Auto 2700 /uL (1500-7000); Neutrophils Percent Auto 64.7 % (50-75); Platelet Count 262 X10^3/uL (150-400); Red Blood Cell Count 4.33 X10^6/uL (4.5-5.9); Red Cell Distribution Width 15.7 % (11.6-14.8); White Blood Cell Count 4.2 X10^3/uL (4.5-11.0)
[2021-02-18 11:27] LABS: HEMOLYSIS < 15 (0-50); Iron 107 ug/dL (49-181)
[2021-02-18 11:32] LABS: Alanine Aminotransferase 23 IU/L (<50); Albumin 4.5 g/dL (3.5-5.0); Albumin Globulin Ratio 1.6 (1.0-2.8); Alkaline Phosphatase 52 U/L (38-126); Aspartate Aminotransferase 35 IU/L (17-59); BUN Creatinine Ratio 11.4 (6-22); Blood Urea Nitrogen 12 mg/dL (9-20); Calcium 9.1 mg/dL (8.4-10.2); Carbon Dioxide 30 mmol/L (22-32); Chloride 97 mmol/L (98-107); Cholesterol 153 mg/dL (140-199); Estimated Glomerular Filt Rate > 60.0 mL/min (>60); Globulin 2.9 g/dL (1.7-4.1); Glucose 98 mg/dL (80-110); HDL Cholesterol 43 mg/dL (40-60); HEMOLYSIS < 15 (0-50); LDL Cholesterol Calculated 84 mg/dL (<100); Potassium 4.7 mmol/L (3.4-5.1); Sodium 133 mmol/L (137-145); Total Protein 7.4 g/dL (6.3-8.2); Triglycerides 131 mg/dL (35-150)
[2021-02-18 11:39] LABS: Percent Iron Saturation 35 % (20-50); Total Iron Binding Capacity 304 ug/dL (261-462); Transferrin 218 mg/dL (206-381)
== END ==
PROVIDERS: PCP Internal Medicine; Referring Provider Internal Medicine; Visit Provider Internal Medicine
DX: I10 Essential (primary) hypertension (principal); D66 Hereditary factor VIII deficiency; Z13.220 Encounter for screening for lipoid disorders
CPT/HCPCS: 36415; 80053; 80061; 83540; 83550; 85025

== ENCOUNTER → 2022-01-29 10:09 | Outpatient (CLI) | payer MEDICARE, SELFPAY ==
[2022-01-29 12:54] LABS: Basophils Absolute Auto 0 /uL (0-100); Basophils Percent Auto 0.7 % (0-2); Eosinophils Absolute Auto 100 /uL (0-450); Eosinophils Percent Auto 1.2 % (2-4); Hematocrit 37.4 % (41-53); Hemoglobin 13.1 g/dL (13.5-17.5); Lymphocytes Absolute Auto 900 /uL (1100-4500); Lymphocytes Percent Auto 21.1 % (25-40); Mean Corpuscular Hemoglobin 31.1 PG (26-34); Mean Corpuscular Volume 88.7 fL (80-100); Monocytes Absolute Auto 500 /uL (0-900); Monocytes Percent Auto 12.4 % (3-14); Neutrophils Absolute Auto 2900 /uL (1500-7000); Neutrophils Percent Auto 64.6 % (50-75); Platelet Count 285 X10^3/uL (150-400); Red Blood Cell Count 4.21 X10^6/uL (4.5-5.9); Red Cell Distribution Width 15.6 % (11.6-14.8); White Blood Cell Count 4.4 X10^3/uL (4.5-11.0)
[2022-01-29 13:05] LABS: Alanine Aminotransferase 26 IU/L (<50); Albumin 4.6 g/dL (3.5-5.0); Albumin Globulin Ratio 1.6 (1.0-2.8); Alkaline Phosphatase 63 U/L (38-126); Aspartate Aminotransferase 31 IU/L (17-59); BUN Creatinine Ratio 11.5 (6-22); Blood Urea Nitrogen 12 mg/dL (9-20); Calcium 8.9 mg/dL (8.4-10.2); Carbon Dioxide 28 mmol/L (22-32); Chloride 94 mmol/L (98-107); Estimated Glomerular Filt Rate > 60 mL/min (>60); Globulin 2.9 g/dL (1.7-4.1); Glucose 96 mg/dL (80-110); HEMOLYSIS < 15 (0-50); Potassium 4.1 mmol/L (3.4-5.1); Sodium 132 mmol/L (137-145); Total Protein 7.5 g/dL (6.3-8.2)
[2022-01-29 13:32] LABS: Add Manual Diff / Slide Review SLIDE REVIEW
[2022-01-29 13:33] LABS: Anisocytosis 1+
[2022-01-29 13:34] LABS: Ovalocytes 1+
== END ==
PROVIDERS: PCP Internal Medicine; Referring Provider Internal Medicine; Visit Provider Internal Medicine
DX: D66 Hereditary factor VIII deficiency (principal); I10 Essential (primary) hypertension
CPT/HCPCS: 36415; 80053; 85025

== ENCOUNTER → 2023-02-08 09:58 | Outpatient (CLI) | payer MEDICARE, SELFPAY ==
[2023-02-08 11:40] LABS: Add Manual Diff / Slide Review NO; Basophils Absolute Auto 0 /uL (0-100); Basophils Percent Auto 0.8 % (0-2); Eosinophils Absolute Auto 100 /uL (0-450); Eosinophils Percent Auto 1.7 % (2-4); Hematocrit 36.1 % (41-53); Hemoglobin 12.7 g/dL (13.5-17.5); Lymphocytes Absolute Auto 800 /uL (1100-4500); Lymphocytes Percent Auto 17.1 % (25-40); Mean Corpuscular HGB Conc 35.2 % (30-36); Mean Corpuscular Hemoglobin 31.4 PG (26-34); Mean Corpuscular Volume 89.3 fL (80-100); Monocytes Absolute Auto 600 /uL (0-900); Monocytes Percent Auto 14.7 % (3-14); Neutrophils Absolute Auto 2900 /uL (1500-7000); Neutrophils Percent Auto 65.7 % (50-75); Platelet Count 271 X10^3/uL (150-400); Red Blood Cell Count 4.05 X10^6/uL (4.5-5.9); Red Cell Distribution Width 15.6 % (11.6-14.8); White Blood Cell Count 4.4 X10^3/uL (4.5-11.0)
[2023-02-08 11:45] LABS: Alanine Aminotransferase 30 IU/L (<50); Albumin 4.4 g/dL (3.5-5.0); Albumin Globulin Ratio 1.6 (1.0-2.8); Alkaline Phosphatase 62 U/L (38-126); Aspartate Aminotransferase 30 IU/L (17-59); BUN Creatinine Ratio 15.9 (6-22); Bilirubin Total 0.9 mg/dL (0.2-1.3); Blood Urea Nitrogen 14 mg/dL (9-20); Calcium 9.4 mg/dL (8.4-10.2); Carbon Dioxide 27 mmol/L (22-32); Chloride 95 mmol/L (98-107); Estimated Glomerular Filt Rate > 60 mL/min (>60); Globulin 2.7 g/dL (1.7-4.1); Glucose 101 mg/dL (80-110); HEMOLYSIS < 15 (0-50); Potassium 4.4 mmol/L (3.4-5.1); Sodium 130 mmol/L (137-145); Total Protein 7.1 g/dL (6.3-8.2)
== END ==
PROVIDERS: PCP Internal Medicine; Referring Provider Internal Medicine; Visit Provider Internal Medicine
DX: D66 Hereditary factor VIII deficiency (principal); I10 Essential (primary) hypertension
CPT/HCPCS: 36415; 80053; 85025

== ENCOUNTER → 2024-02-08 12:18 | Outpatient (CLI) | payer MEDICARE, SELFPAY ==
[2024-02-08 13:35] LABS: Add Manual Diff / Slide Review NO; Basophils Absolute Auto 0 /uL (0-100); Basophils Percent Auto 0.9 % (0-2); Eosinophils Absolute Auto 100 /uL (0-450); Eosinophils Percent Auto 1.8 % (2-4); Hematocrit 36.6 % (41-53); Hemoglobin 12.6 g/dL (13.5-17.5); Lymphocytes Absolute Auto 800 /uL (1100-4500); Mean Corpuscular HGB Conc 34.4 % (30-36); Mean Corpuscular Hemoglobin 30.6 PG (26-34); Monocytes Absolute Auto 600 /uL (0-900); Neutrophils Absolute Auto 2800 /uL (1500-7000); Neutrophils Percent Auto 64.3 % (50-75); Platelet Count 292 X10^3/uL (150-400); Red Blood Cell Count 4.11 X10^6/uL (4.5-5.9); White Blood Cell Count 4.3 X10^3/uL (4.5-11.0)
[2024-02-08 14:01] LABS: HEMOLYSIS < 15 (0-50); Iron 131 ug/dL (49-181)
[2024-02-08 14:09] LABS: Alanine Aminotransferase 22 IU/L (<50); Albumin 4.7 g/dL (3.5-5.0); Albumin Globulin Ratio 1.8 (1.0-2.8); Alkaline Phosphatase 58 U/L (38-126); Aspartate Aminotransferase 30 IU/L (17-59); BUN Creatinine Ratio 10.8 (6-22); Blood Urea Nitrogen 11 mg/dL (9-20); Carbon Dioxide 29 mmol/L (22-32); Chloride 93 mmol/L (98-107); Estimated Glomerular Filt Rate > 60 mL/min (>60); Globulin 2.6 g/dL (1.7-4.1); Glucose 101 mg/dL (80-110); HEMOLYSIS < 15 (0-50); Potassium 4.4 mmol/L (3.4-5.1); Sodium 130 mmol/L (137-145); Total Protein 7.3 g/dL (6.3-8.2)
[2024-02-08 14:14] LABS: Percent Iron Saturation 42 % (20-50); Total Iron Binding Capacity 309 ug/dL (261-462); Transferrin 232 mg/dL (206-381)
== END ==
LOC: LAB 12:19
PROVIDERS: PCP Internal Medicine; Referring Provider Internal Medicine; Visit Provider Internal Medicine
DX: D66 Hereditary factor VIII deficiency (principal); I10 Essential (primary) hypertension; G44.229 Chronic tension-type headache, not intractable; F11.20 Opioid dependence, uncomplicated
CPT/HCPCS: 36415; 80053; 83540; 83550; 85025

== ENCOUNTER → 2025-02-06 10:41 | Outpatient (CLI) | payer MEDICARE, SELFPAY ==
[2025-02-06 11:36] LABS: Add Manual Diff / Slide Review NO; Hematocrit 35.5 % (41-53); Hemoglobin 12.3 g/dL (13.5-17.5); Lymphocytes Absolute Auto 800 /uL (1100-4500); Mean Corpuscular HGB Conc 34.6 % (30-36); Mean Corpuscular Hemoglobin 31.2 PG (26-34); Mean Corpuscular Volume 90.2 fL (80-100); Platelet Count 252 X10^3/uL (150-400)
[2025-02-06 11:56] LABS: Alanine Aminotransferase 16 IU/L (<50); Albumin 4.8 g/dL (3.5-5.0); Albumin Globulin Ratio 1.8 (1.0-2.8); Alkaline Phosphatase 54 U/L (38-126); Blood Urea Nitrogen 13 mg/dL (9-20); Calcium 9.4 mg/dL (8.4-10.2); Carbon Dioxide 27 mmol/L (22-32); Chloride 94 mmol/L (98-107); Cholesterol 154 mg/dL (140-199); Estimated Glomerular Filt Rate > 60 mL/min (>60); Globulin 2.7 g/dL (1.7-4.1); Glucose 104 mg/dL (70-99); HDL Cholesterol 65 mg/dL (40-60); HEMOLYSIS < 15 (0-50); Potassium 4.8 mmol/L (3.4-5.1); Sodium 130 mmol/L (137-145); Total Protein 7.5 g/dL (6.3-8.2); Triglycerides 109 mg/dL (35-150)
== END ==
PROVIDERS: PCP Internal Medicine; Referring Provider Internal Medicine; Visit Provider Internal Medicine
DX: I10 Essential (primary) hypertension (principal); D66 Hereditary factor VIII deficiency; M47.812 Spondylosis without myelopathy or radiculopathy, cervical region; Z13.220 Encounter for screening for lipoid disorders; Z13.6 Encounter for screening for cardiovascular disorders
CPT/HCPCS: 36415; 80053; 80061; 85025